=== PATIENT | male | born 1980 | race African-American/Black ===

== ENCOUNTER 2017-01-15 02:45 | Emergency (ER) | payer OTHER ==
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
[~2017-01-15 02:45] MED LIST: DICLOFENAC PO; FLEXERIL PO; ZITHROMAX PO
== END 2017-01-15 05:40 | disposition home or self-care (01) ==
LOC: CED 02:45
DX: S50.02XA Contusion of left elbow, initial encounter (principal); S60.032A Contusion of left middle finger without damage to nail, initial encounter; F17.210 Nicotine dependence, cigarettes, uncomplicated; W22.8XXA Striking against or struck by other objects, initial encounter; Y92.009 Unspecified place in unspecified non-institutional (private) residence as the place of occurrence of the external cause
CPT/HCPCS: 70450; 73080; 73130; 99284